=== PATIENT | female | born 1980 | race Caucasian/White ===

== ENCOUNTER → 2024-07-23 | Day surgery (SDC) | payer BC ==
[~2024-07-23] MED LIST: BUPIVACAINE HCL 0.5% INJ 30 ML VIAL INJ ONE; DEXAMETHASONE SOD PHOS INJ 4 MG/ML SDV ONE; EPHEDRINE SULFATE INJ 50 MG/ML VIAL ONE; FENTANYL CITRATE/PF 100MCG/2 ML INJ ONE; KETOROLAC TROMETHAMINE 30 MG/ML VIAL ONE; LIDOCAINE HCL 2% LOCAL INJ 5 ML SDV VIAL INJ ONE; MEPERIDINE HCL INJ 25 MG/ML VIAL ONE; MIDAZOLAM HCL 2 MG/2 ML VIAL ONE; Morphine 10mg syringe 10 MG/ML INJ ONE; ONDANSETRON HCL INJ 2MG/ML 2ML 2 MG/ML VIAL ONE; PROPOFOL IV EMULSION 10 MG/ML 20 ML VIAL ONE; ROPIVACAINE 0.5% 5 MG/ML 30 ML SDV ONE; SEVOFLURANE INHAL SOLN 250 ML PEN BTL ONE
[2024-07-23] MEDS: LACTATED RINGER'S 1,000 ML ONE (11:33)
[2024-07-23] MEDS: CEFAZOLIN SODIUM 2 GM ONE (11:33)
[2024-07-23 14:34] VITALS: TEMP 97.7
[2024-07-23] MEDS: MEPERIDINE HCL INJ 25 MG/ML VIAL IV ONE ×2 (14:52→15:00)
[2024-07-23] MEDS: ONDANSETRON HCL INJ 2MG/ML 2ML 2 MG/ML VIAL IV ONE (15:06)
[2024-07-23 15:35] VITALS: BP 111/65; PULSE 81; RESP 15; O2SAT 100
== END | disposition home or self-care (01) ==
LOC: OR 10:46
PROVIDERS: ATTEND Podiatrist Foot & Ankle Surgery
DX: M20.11 Hallux valgus (acquired), right foot (principal); M21.961 Unspecified acquired deformity of right lower leg; E78.5 Hyperlipidemia, unspecified; Z88.6 Allergy status to analgesic agent
CPT/HCPCS: 28297; C1713 ×3; C1734; C1769; J0690; J1100; J1885; J2001; J2175; J2250; J2270; J2405; J2704; J2795; J3010; J7121; J2003